=== PATIENT | male | born 1990 | race Caucasian/White ===

== ENCOUNTER 2019-02-17 16:39 | Emergency (ER) | payer MEDICAID ==
[~2019-02-17] VITALS: Ht 167.6 cm; Wt 60.4 kg
[2019-02-17 16:55] VITALS: BP 127/75
[2019-02-17] MEDS ORDERED: LIDOCAINE-MPF 1%, 5ML ONE (17:56)
[2019-02-17] MEDS: PLEASE ENTER ALLERGIES MC SCH ×2 (18:00→18:56)
[2019-02-17] MEDS ORDERED: LIDOCAINE-MPF 1%, 5ML INFIL ONE (18:00)
[2019-02-17] MEDS ORDERED: MICROFIBRILLAR COLLAGEN 1 GM TP ONE (18:30)
== END 2019-02-17 19:16 | disposition home or self-care (01) ==
LOC: ED 19:10
DX: S61.011A Laceration without foreign body of right thumb without damage to nail, initial encounter (principal); F10.10 Alcohol abuse, uncomplicated; F17.200 Nicotine dependence, unspecified, uncomplicated; Z72.89 Other problems related to lifestyle; X58.XXXA Exposure to other specified factors, initial encounter; Y93.89 Activity, other specified; Y92.89 Other specified places as the place of occurrence of the external cause; Y99.8 Other external cause status; Y90.9 Presence of alcohol in blood, level not specified
CPT/HCPCS: 12041; 99284